=== PATIENT | female | born 1940 | race Caucasian/White ===

== ENCOUNTER 2022-05-04 02:01 | Emergency (ER) | payer MEDICARE, BC, SELFPAY ==
[2022-05-04 02:04] VITALS: BP 133/113; PULSE 84; RESP 16; TEMP 36.7; O2SAT 97; BMI 29.2
--- NOTE | 2022-05-04 02:46 | CT_ITS ---
STUDY: CT ABDOMEN AND PELVIS WITH CONTRAST REASON FOR EXAM: Female, 82 years old. abd pain / ? SBO RADIATION DOSAGE (If Supplied By Facility): CTDIvol = ( 14.16 ) mGy, DLP = ( 841.61 ) mGycm TECHNIQUE: Transaxial images were obtained from the dome of the diaphragm to the symphysis pubis without oral contrast. IV 75mL Isovue-300 was administered. Sagittal and coronal images were reconstructed. Individualized dose optimization techniques were used for this CT. COMPARISON: None. FINDINGS: LOWER CHEST: Aortic valvular calcifications. Irregular linear opacities at the lung bases, may be due to subsegmental atelectasis or pleural/parenchymal scarring. LIVER: Coarse calcifications in the liver. Mild intrahepatic biliary ductal dilatation, may be normal in a postcholecystectomy patient. GALLBLADDER/BILE DUCTS: Status post cholecystectomy.. PANCREAS: Normal. SPLEEN: Normal. ADRENAL GLANDS: Normal. KIDNEYS/URETERS/BLADDER: Cystic changes in the kidneys, overall too small to characterize. No hydroureteronephrosis or radiopaque nephrolithiasis. Chaves catheter in place within the decompressed urinary bladder, limiting evaluation. RETROPERITONEUM/AORTA: Mild to moderate atherosclerotic calcifications. BOWEL/MESENTERY: Scattered colonic diverticulosis without discrete evidence of acute diverticulitis. Mild increased stool in the colon and rectum. No bowel dilatation or bowel wall thickening. APPENDIX: Not visualized. PERITONEUM: Normal. REPRODUCTIVE ORGANS: Hysterectomy. BONES/SOFT TISSUES: Mildly displaced fracture of the left inferior and superior pubic rami with associated callus formation and subcapital right femoral neck fracture. Sclerotic changes in the right acetabulum. Status post L3-L5 posterior spinal fusion hardware with associated grade 1 anterolisthesis. OTHER: None. CT/Abdomen/Pelvis W IV Cont ONLY IMPRESSION: 1. Mild increased stool in the colon and rectum, correlate for constipation. 2. Acute/subacute mildly displaced displaced left pelvic fractures. 3. Subcapital right femoral neck fracture. 4. Additional chronic findings as above. Electronically Signed: Ross Cooper MD at 4:18 EDT ,
[2022-05-04 03:01] LABS: Absolute Lymphocyte Count 1.63 X10^3/uL (0.83-4.51); Absolute Neutrophil Count 8.4 X10^3/uL (2.0-7.7); Basophil# 0.03 X10^3/uL; Basophil% 0.3 % (0-1); Eosinophil# 0.07 X10^3/uL; Eosinophils% 0.6 % (0-5); Hematocrit 29.2 % (37-47); Hemoglobin 8.7 g/dL (12.0-15.0); Lymphocyte # 1.63 X10^3/ul (0.83-4.51); Lymphocyte % 14.7 % (19-41); Mean Corp Hgb Conc 29.8 g/dL (32-36); Mean Corpuscular Hgb 28.3 pg (27.0-32.0); Mean Corpuscular Volume 95.1 fL (81-99); Mean Platelet Vol. 9.9 fl (6.2-12.0); Monocyte% 7.2 % (0-10); NRBC Flagged by Analyzer 0 % (0-5); Neutrophil % 75.8 % (47-70); Platelet Count 402 K/mm3 (150-450); RBC Distribution Width CV 14.3 % (11.6-14.6); RBC Distribution Width SD 48.3 fl (35.1-43.9); Red Blood Count 3.07 M/mm3 (4.2-5.4); White Blood Count 11.1 K/mm3 (4.4-11.0)
[2022-05-04 03:24] LABS: AST(SGOT) 18 U/L (15-37); Alanine Aminotransfer ALT/SGPT 17 U/L (13-56); Albumin, Serum 2.4 g/dL (3.2-5.0); Alkaline Phosphatase 91 U/L (45-117); Anion Gap 0 (5-15); BUN 46 mg/dL (7-18); BUN/Creat Ratio 33.3 RATIO (10-20); Bilirubin, Direct 0.09 mg/dL (0.00-0.30); Calcium,Total 9.3 mg/dL (8.5-10.1); Chloride 99 mmol/L (98-107); Creatinine, Serum 1.38 mg/dL (0.55-1.02); EST Glomerular Filtration Rate 39 mL/min (>60); Est Glom Filt Rate - Afr Amer 47 mL/min (>60); Estimated Creatinine Clearance 24.86 ml/min; Globulin 3.6 g/dL (2.2-4.2); Glucose 98 mg/dL (74-106); Lipase 126 U/L (73-393); Magnesium 2.5 mg/dL (1.6-2.6); Potassium 4.3 mmol/L (3.5-5.1); Sodium Level 139 mmol/L (136-145)
--- NOTE | 2022-05-04 03:37 | EDS_ITS ---
HPI History of Present Illness Chief Complaint: Constipation Narrative Narrative: Patient is an 82-year-old female from the assisted. She states that she cannot sleep this evening secondary to abdominal pain and has been constipated. She states that the emergency room tried to dig her out but that they were unsuccessful. She does states she has been taking pain medication secondary to a fractured right hip and reports previous surgeries of tubal ligation and hysterectomy. She denies any vomiting or history of obstruction. She denies any fevers or chills or dysuria. She states that as her pains been persistent with no improvement with the disimpaction by assisted she was sent in for evaluation [facility] Home Medications magnesium hydroxide [Milk of Magnesia] 5 ml PO DAILY #355 ml 05/04/22 [Rx Last Taken Unknown] Allergy/AdvReac Type Severity Reaction Status Date / Time No Known Allergies Allergy Verified 05/04/22 03:39 Social History Smoking Status: Never smoker ROS ROS ED Constitutional Constitutional ED: Denies chills or fever(s) ENT ENT ED: Denies sore throat Cardiovascular Cardiovascular: Denies chest pain Respiratory/Chest Respiratory/Chest: Denies cough or dyspnea Gastrointestinal Gastrointestinal: Reports abdominal pain and constipation; Denies diarrhea, nausea or vomiting Genitourinary Genitourinary ED: Denies dysuria Musculoskeletal Musculoskeletal: Reports other Details: Positive right hip pain ; Denies myalgias Integumentary Denies rash Neurologic Neurologic: Denies headache(s) Hematologic/Lymphatic Hematologic/Lymphatic: Reports easy bleeding and easy bruising EXAM Physical Exam Const Vital Signs: 05/04/22 02:04 Temperature 98.0 F Temperature Source Temporal Pulse Rate 84 Respiratory Rate 16 Blood Pressure 133/113 H Blood Pressure Mean 119 Pulse Ox 97 Oxygen Delivery Method Room Air Positive well nourished, well developed and obese General Appearance ED: well developed Nutritional Appearance: obese HEENT Reports moist mucous membranes Eyes PERRL and EOMs intact bilaterally Neck supple Resp normal respiratory effort and clear to auscultation bilaterally Cardio regular rate and regular rhythm Rate: other Other Details: Radial pulses are +2/4 are equal and symmetric GI GI Narrative: Abdomen is obese and soft with hypoactive bowel sound. There is mild pain with palpation in the left upper and lower regions. Patient has slight distention noted with increased tympany in the left upper abdomen. Otherwise there is no fluid wave or pulsatile mass. No voluntary guarding or rigidity Palpation: soft Back/Spine no CVA tenderness Extremity Extremity Narrative: Patient has chronic changes to the right hip/leg consistent with her previous fracture but no acute findings Neuro oriented x3 and CN's II-XII intact bilaterally Sensorium / Orientation: alert Psych mental status grossly normal Skin no rashes or lesions noted MDM MDM MDM Narrative Medical decision making narrative: Patient presented to the ER hypertensive but otherwise with stable vitals. She reported a known right sided hip fracture since mid to end of February and takes narcotics secondary to this. Her history is most consistent with constipation but as she has had previous tubal ligation and hysterectomy there is concern that she has developed scar tissue/adhesions which have led to possible. There is also concern she may have diverticulitis based on her constipation and abdominal pain and therefore basic labs and a CT scan were ordered. Labs revealed hemoglobin at 9 but this still above transfusion value. The CT scan showed changes consistent with constipation but no obstruction perforation or diverticulitis. Patient underwent a enema in the ER and did have moderate amount of stool expressed. Therefore at this time as the CT scan does not show obstruction perforation or infection and she has had improvement of her symptoms with an enema I do not feel there is need for admission. The patient reports that her hip fracture is known and that she has seen orthopedics for it. She also reports that they plan to fix it surgically but not until she lowers her hemoglobin A1c and correct the wounds to her lower leg. Therefore as this fracture is known/subacute and she is already seen the specialist I do not feel there is need for emergent involvement of orthopedics in the ER. As the abdominal discomfort has been improved with improvement of the constipation and there is no obvious infection or perforation of the abdominal cavity she can be discharged back to the assisted Lab Data Attestation: I reviewed the patient's lab results. Labs: Laboratory Results - last 24 hr 05/04/22 05/04/22 02:57 02:57 WBC 11.1 H RBC 3.07 L Hgb 8.7 L Hct 29.2 L MCV 95.1 MCH 28.3 MCHC 29.8 L RDW Std Deviation 48.3 H RDW Coeff of Christin 14.3 Plt Count 402 MPV 9.9 Immature Gran % (Auto) 1.400 H Neut % (Auto) 75.8 H Lymph % (Auto) 14.7 L Licking % (Auto) 7.2 Eos % (Auto) 0.6 Baso % (Auto) 0.3 Absolute Neuts (auto) 8.4 H Absolute Lymphs (auto) 1.63 Nucleated RBC % 0 Sodium 139 Potassium 4.3 Chloride 99 Carbon Dioxide 40.0 H Anion Gap 0 L BUN 46 H Creatinine 1.38 H Estim Creat Clear Calc 24.86 Est GFR (MDRD) Af Amer 47 L Est GFR (MDRD) Non-Af 39 L BUN/Creatinine Ratio 33.3 H Glucose 98 Calcium 9.3 Magnesium 2.5 Total Bilirubin 0.20 Direct Bilirubin 0.09 AST 18 ALT 17 Alkaline Phosphatase 91 Total Protein 6.0 L Albumin 2.4 L Globulin 3.6 Lipase 126 Radiography Diagnostic Testing: Clinical Impression(s) from Imaging Studies Abdomen/Pelvis CT 05/04/22 02:46 IMPRESSION: 1. Mild increased stool in the colon and rectum, correlate for constipation. 2. Acute/subacute mildly displaced displaced left pelvic fractures. 3. Subcapital right femoral neck fracture. 4. Additional chronic findings as above. Electronically Signed: Ross Cooper MD at 4:18 EDT , Discharge Plan Triage Chief Complaint: Constipation ED Provider: Bertin Paniagua Dx/Rx/DC Orders Clinical Impression: Constipation, Closed subcapital fracture of neck of right femur with delayed healing Instructions: ED Constipation (Adult) Prescriptions: New magnesium hydroxide [Milk of Magnesia] 400 mg/5 mL suspension 5 ml PO DAILY Qty: 355 RF: 0 Primary Care Provider: Emily Malagon Referrals: Emily Malagon MD [Primary Care Provider] - Activity Restrictions/Additional Instructions: Please take the milk of magnesia as directed to help prevent further constipation and continue to follow-up with orthopedics regarding your hip fracture. Please return to the ER should you have any further concerns Disposition Disposition: Home, Self Care
[2022-05-04] MEDS: Menthol/Lanolin/Calamine/Znox 113 GM Tube 1 APPLIC TOPICAL (05:43)
[2022-05-04 06:34] VITALS: BP 128/70; PULSE 74; RESP 16; O2SAT 97; O2SAT 98
== END 2022-05-04 06:36 | disposition home or self-care (01) ==
PROVIDERS: Emergency Provider Emergency Medicine; PCP Internal Medicine Geriatric Medicine; Visit Provider Emergency Medicine
DX: K59.00 Constipation, unspecified (principal); S72.011G Unspecified intracapsular fracture of right femur, subsequent encounter for closed fracture with delayed healing; E66.9 Obesity, unspecified; X58.XXXA Exposure to other specified factors, initial encounter
CPT/HCPCS: 74177; 80048; 80076; 83690; 83735; 85025; 99285; J7030; Q9967; A4216